=== PATIENT | female | born 1945 ===

== ENCOUNTER → 2018-06-15 17:48 | Outpatient (REF) | payer MEDICARE, OTHER, SELFPAY ==
[2018-06-15 18:35] LABS: Alanine Aminotransferase 36 IU/L (9-52); Albumin Globulin Ratio 1.6 (1.0-2.8); Alkaline Phosphatase 44 U/L (38-126); Aspartate Aminotransferase 27 IU/L (14-36); BUN Creatinine Ratio 16.3 (6-22); Bilirubin Total 0.4 mg/dL (0.2-1.3); Blood Urea Nitrogen 13 mg/dL (7-17); Calcium 9.3 mg/dL (8.4-10.2); Carbon Dioxide 27 mmol/L (22-32); Chloride 103 mmol/L (98-107); Cholesterol 201 mg/dL (140-199); Estimated Glomerular Filt Rate > 60.0 mL/min (>60); Globulin 2.5 g/dL (1.7-4.1); Glucose 92 mg/dL (80-110); HDL Cholesterol 80 mg/dL (40-60); HEMOLYSIS < 15 (0-50); LDL Cholesterol Calculated 103 mg/dL (<100); Potassium 4.3 mmol/L (3.4-5.1); Sodium 138 mmol/L (137-145); Total Protein 6.5 g/dL (6.3-8.2); Triglycerides 91 mg/dL (35-150)
== END ==
LOC: LAB 17:48
PROVIDERS: Family Provider Family Medicine Geriatric Medicine; PCP Family Medicine Geriatric Medicine; Visit Provider Family Medicine Geriatric Medicine
DX: Z79.899 Other long term (current) drug therapy (principal); E78.5 Hyperlipidemia, unspecified
CPT/HCPCS: 36415; 80053; 80061

== ENCOUNTER → 2022-11-30 15:44 | Outpatient (CLI) | payer MEDICARE, OTHER, SELFPAY ==
--- NOTE | 2022-11-30 | DI.MRI.S_ITS ---
PROCEDURE: MR ORBITS FACE NECK WO/W CON INDICATIONS: 77-year-old female with globus sensation, and history of nasopharyngeal carcinoma status post XRT TECHNIQUE: Sagittal/axial/coronal T1 spin echo and STIR. After the administration of contrast, axial/coronal/sagittal T1 fast spin echo with fat saturation through the neck. COMPARISON: None. FINDINGS: Image quality: Excellent. Lymph nodes: No enlarged nodes are seen throughout the neck. Vessels: Visualized vasculature appears normal, with normal flow voids and enhancement. Neck spaces: The oropharynx, nasopharynx and pharynx are unremarkable, without mucosal lesions seen. Vocal cords, false vocal cords, pyriform sinuses, epiglottis, vallecula, and tongue base all appear normal. Extramucosal spaces of the neck also appear unremarkable. Glands: The parotid and submandibular glands appear normal. Thyroid gland unremarkable. Miscellaneous: Visualized brain and orbits appear normal. Lung apices appear clear. Superficial soft tissues appear normal. Visualized sinuses and mastoids appear clear. Bones: Marrow has normal overall signal. Mild degenerative endplate changes noted in the mid cervical spine IMPRESSION: Unremarkable MRI of neck. No evidence of mass lesion Approved by: Roberto Ribera M.D. on 12/01/2022 at 18:20
== END ==
PROVIDERS: Family Provider Family Medicine Geriatric Medicine; PCP Family Medicine Geriatric Medicine; Referring Provider Nurse Practitioner Family; Visit Provider Nurse Practitioner Family
DX: R22.1 Localized swelling, mass and lump, neck (principal); Z85.89 Personal history of malignant neoplasm of other organs and systems
CPT/HCPCS: 70543; A9579

== ENCOUNTER 2023-04-19 12:47 | Emergency (ER) | payer MEDICARE, OTHER, SELFPAY ==
[2023-04-19] VITALS (10 sets, daily range): BP systolic 162–203; BP diastolic 70–82; PULSE 55–62; RESP 16–24; TEMP 37.4; O2SAT 98–100; BMI 25.1
--- NOTE | 2023-04-19 13:22 | ED.GENADULT ---
HPI - General Adult General Chief complaint: Hypertension Stated complaint: sent from [facility] to re-evaluate Time Seen by Provider: 04/19/23 14:56 Source: patient and family Mode of arrival: Wheelchair History of Present Illness HPI narrative: Patient is a 78-year-old female history of hypothyroid, remote nasopharyngeal cancer presents today from the [facility] needing an MRI. She reports that she is had some ringing in her ears elevated blood pressure blurry vision difficulty ambulating. She was seen evaluated at Monday a couple of days ago she had a CT angio blood work was discharged home on Catapr. She reports that she still is having some trouble walking. She says the blurry vision has gotten better. No numbness tingling weakness. No chest pain palpitations. No fever any other symptoms. It sounds like she was sent over outpatient MRI which has yet to be scheduled. Not sure symptoms are significantly worse today. Actually spoke with the ED physician Dr. Ambrocio over at Monday she reviewed the record she actually saw the patient. She said that she has had some ongoing issues for months but a little bit worse. She was able to review the CT angio because we were not able to get records there is less pain 50% stenosis and no acute finding. Related Data Home Medications Medication Instructions Recorded Confirmed LEVOTHYROXINE SODIUM (SYNTHROID) ##0 11/16/10 conjugated estrogens 0.3 mg tablet 0.3 mg PO QDAY ##0 11/16/10 (Premarin) fluoxetine 40 mg capsule (Prozac) 10 mg PO QDAY ##0 11/16/10 simvastatin 40 mg tablet (Zocor) 40 mg PO QDAY ##0 11/16/10 Previous Rx's Medication Instructions Recorded meclizine 25 mg tablet 25 mg PO TID PRN dizziness #10 tabs 04/19/23 Allergies Allergy/AdvReac Type Severity Reaction Status Date / Time Penicillins Allergy Unknown Verified 04/19/23 15:24 Patient History Social History Smoking Status: Never smoker Smoking Status: Never smoker alcohol intake frequency: holidays/special occasions only Substance Use Type: does not use Exam Initial Vital Signs Initial Vital Signs: Vital Signs Temperature 99.4 F 04/19/23 12:50 Pulse Rate 62 04/19/23 12:50 Respiratory Rate 18 04/19/23 12:50 Blood Pressure 203/82 H 04/19/23 12:50 Pulse Oximetry 100 04/19/23 12:50 Oxygen Delivery Method Room Air 04/19/23 12:50 GENERAL: Alert well-appearing 78-year-old female and in no acute distress. HEENT: Head atraumatic,EOMI, no nystagmus pupils reactive, face symmetric, moist mucous membranes CARDIOVASCULAR: Regular rate and rhythm without murmurs, rubs or gallops. RESPIRATORY: Breath sounds equal bilaterally, no wheezes rales or rhonchi. ABDOMEN: Soft, nontender. Normoactive bowel sounds all 4 quadrants. No guarding or rebound. EXTREMITIES: Normal range of motion, no clubbing or edema. Neurovascularly intact NEUROLOGICAL: Alert and oriented x4.Normal gait and speech. Cranial nerves II through XII grossly intact. Good okjoef-gj-dwar, good equa-zp-aycs, strength equal bilaterally, no dysarthria or aphasia, sensation in tact to soft touch bilaterally, no visual changes, no facial droop SKIN: Warm, dry, no laceration, no petechiae, no rashes or lesions. Scores NIH Stroke Scale Level of Conciousness: Alert, keenly responsive Ask month/age: Answers both questions correctly. Open/close eyes, close hand: Performs both tasks correctly Best gaze horizontal: Normal Visual vázquez: No visual loss Facial palsy: Normal symetrical movement Left arm drift: No drift for full 10 sec Right arm drift: No drift for full 10 sec Left leg drift: No drift for full 5 sec Right leg drift: No drift for full 5 sec Limb ataxia: Absent Sensory on face/arms/legs: Normal, no sensory loss Best language: No aphasia, normal Dysarthria: Normal Extinction or inattention: No abnormality Total NIH Stroke scale score: 0 Course Orders Ordered: ED Orders 04/19/23 13:20 Complete Blood Count AUTO DIFF Stat Comprehensive Metabolic Panel Stat Lipase Stat Troponin & CK Cardiac Panel Stat 04/19/23 15:07 MR stroke Stat 04/19/23 15:08 EKG-12 Lead Stat Discontinued Medications Lorazepam (Lorazepam 2 Mg/Ml Inj) 0.5 mg IV NOW ONE Stop: 04/19/23 15:23 Last Admin: 04/19/23 15:30 Dose: 0.5 mg Documented By: AMV Vital Signs Vital signs: Vital Signs - 8 hr 04/19/23 12:50 04/19/23 13:21 12/27/23 13:21 Temperature 99.4 F Pulse Rate 62 56 L Respiratory Rate 18 16 Blood Pressure 203/82 H 169/72 H Pulse Oximetry 100 100 Oxygen Delivery Method Room Air 04/19/23 13:30 04/19/23 13:30 04/19/23 14:00 Temperature Pulse Rate 57 L 57 L Respiratory Rate 20 18 Blood Pressure 166/70 H Pulse Oximetry 100 99 Oxygen Delivery Method 04/19/23 14:00 04/19/23 14:30 04/19/23 14:31 Temperature Pulse Rate 56 L Respiratory Rate 22 Blood Pressure 188/75 H 162/72 H Pulse Oximetry 100 Oxygen Delivery Method 04/19/23 14:31 04/19/23 15:00 04/19/23 16:56 Temperature Pulse Rate 56 L 57 L 59 L Respiratory Rate 16 24 19 Blood Pressure Pulse Oximetry 99 98 99 Oxygen Delivery Method 04/19/23 16:57 04/19/23 16:57 04/19/23 17:00 Temperature Pulse Rate 57 L Respiratory Rate 22 Blood Pressure 187/79 H 171/72 H Pulse Oximetry 99 Oxygen Delivery Method 04/19/23 17:00 Temperature Pulse Rate 55 L Respiratory Rate 22 Blood Pressure Pulse Oximetry 100 Oxygen Delivery Method Medical Decision Making Lab Data 04/19/23 13:20 04/19/23 13:20 Labs: Lab Results 04/19/23 Range/Units 13:20 WBC 8.0 (4.5-11.0) X10^3/uL RBC 4.44 (4.0-5.2) X10^6/uL Hgb 13.4 (12.0-16.0) g/dL Hct 39.6 (36-46) % MCV 89.1 (80-100) fL MCH 30.1 (26-34) PG MCHC 33.8 (30-36) % RDW 13.5 (11.6-14.8) % Plt Count 380 (150-400) X10^3/uL Neut % (Auto) 72.1 (50-75) % Lymph % (Auto) 19.3 L (25-40) % Trinity % (Auto) 5.7 (3-14) % Eos % (Auto) 2.1 (2-4) % Baso % (Auto) 0.8 (0-2) % Neut # (Auto) 5800 (2804-5182) /uL Lymph # (Auto) 1500 (8795-7479) /uL Trinity # (Auto) 500 (0-900) /uL Eos # (Auto) 200 (0-450) /uL Baso # (Auto) 100 (0-100) /uL Sodium 131 L (137-145) mmol/L Potassium 3.7 (3.4-5.1) mmol/L Chloride 98 (98-107) mmol/L Carbon Dioxide 25 (22-32) mmol/L BUN 15 (7-17) mg/dL Creatinine 0.84 (0.52-1.04) mg/dL Estimated GFR > 60 (>60) mL/min BUN/Creatinine Ratio 17.9 (6-22) Glucose 116 H (80-110) mg/dL Calcium 9.1 (8.4-10.2) mg/dL Total Bilirubin 0.6 (0.2-1.3) mg/dL AST 36 (14-36) IU/L ALT 25 (<35) IU/L Alkaline Phosphatase 49 (38-126) U/L Total Creatine Kinase 47 (30-135) U/L Troponin I < 0.012 (0.01-0.034) ng/mL Total Protein 7.0 (6.3-8.2) g/dL Albumin 3.9 (3.5-5.0) g/dL Globulin 3.1 (1.7-4.1) g/dL Albumin/Globulin Ratio 1.3 (1.0-2.8) Lipase 106 (23-300) U/L Imaging Data MR : Radiologist's Impression: PROCEDURE: MR STROKE Pre- and post-contrast brain MRI, non-contrast brain MR angiogram, pre- and postcontrast neck MR angiogram INDICATIONS: dizzy, unable to ambulate for days, had CT on monday TECHNIQUE: Brain: Noncontrast axial T1 spin echo, axial T2 fast spin echo, sagittal and axial FLAIR, coronal T2 fast spin echo, axial gradient echo, axial diffusion and ADC through the brain. After the administration of contrast, axial 3D VIBE of the cranial vasculature and brain. Brain MRA: Non-contrast 3-D time of flight MR angiogram, with multiple gjmkkgf-vllumqqgq-xwfakaeplo (MIP) reformats performed. Neck MRA: Axial and sagittal TruFISP through the neck. Coronal dynamic MR angiogram during administration of contrast in the arterial and venous phases, with 3-dimenstional hakfoah-wuymcrzco-grixyrhuut (MIP) reformats constructed from subtraction images. COMPARISON: [facility], , STROKE PROTOCOL, 11/17/2010, 11:28. FINDINGS: Image quality: Excellent. BRAIN: CSF spaces: Ventricles are normal in size and shape. Basal cisterns are patent. No extra-axial fluid collections. Brain: No intracranial bleeds or mass effects. Ware-white matter interface is normal. Diffusion weighted images show no acute infarct. Brainstem appears normal. Normal intravascular flow voids are present. No abnormal intracranial enhancement. Skull and face: Calvarial marrow signal is normal. Orbits appear normal. Sinuses: Mild left maxillary mucosal thickening. BRAIN MR ANGIOGRAM: Anterior circulation: Intracranial internal carotid arteries are normal in size and enhancement. The flow within the paired anterior cerebral arteries is normal and symmetric. The flow within the middle cerebral arteries is normal and symmetric. The anterior communicating artery is seen. No stenoses, occlusions, or aneurysms. Posterior circulation: The visualized portions of the vertebral arteries demonstrate normal caliber, and join to form a normal appearing basilar artery. The flow within the posterior cerebral arteries is normal and symmetric. No stenoses, occlusions, or aneurysms. NECK MR ANGIOGRAM: Carotids: Great vessels demonstrate a conventional anatomy as they arise from the aortic arch. The origins of the common carotid arteries appear patent. The calibers and courses of both common carotid arteries are normal. The bifurcation region on the right demonstrates a less than 20% stenosis with a subsequent 50% stenosis in the proximal ICA. The bifurcation region on the left demonstrates no significant stenosis. The internal carotid arteries demonstrate normal course and caliber. Posterior circulation: The origins of the vertebral arteries appear patent. More superior portions of both vertebral arteries demonstrate normal course and caliber, and join to form a normal appearing basilar artery. Miscellaneous: Subclavian arteries appear patent. Pre-contrast images through the neck show no soft tissue abnormalities. C6-7 demonstrates a diffuse disc bulge and ligamentum flavum hypertrophy resulting in moderate to severe central canal stenosis. C5-6 has mild central canal stenosis. IMPRESSION: BRAIN MRI: 1. No acute intracranial abnormality. 2. Cerebral volume loss and small vessel ischemic changes. BRAIN MR ANGIOGRAM: Normal. No large vessel occlusion. NECK MR ANGIOGRAM: 50% stenosis in the right proximal ICA. CERVICAL SPINE: Moderate to severe central canal stenosis at C6-7. Dictated by: Federico Kirk M.D. on 04/19/2023 at 16:49 ECG Data Interpretation: Normal sinus rhythm rate 56 WA interval 148 QRS 82 QTC 468 which is improved from previous QTC which was 540 MDM Narrative Medical decision making narrative: Patient is a 78-year-old female who presents with some dizziness and balance issues. It has been ongoing for a couple of days. She initially presented to an outside facility where she had a CT angio which did not show any occlusion. She spoke with her PCP recommended she come for an MRI. She does actually have difficulty ambulating in the ED needing to hold onto the vanegas in her . Says this is very abnormal for her. She also has significant ringing in her ear which is new. No nausea or vomiting. She does not really seem to be dizzy. Possible vertigo versus posterior stroke versus tinnitus versus labyrinthitis Blood work is overall reassuring. MRI does show small vessel ischemic changes. At this time need for outpatient follow-up. She is ambulatory to the restroom a couple of times but does need obvious assistance. Discharge Plan Departure Patient Disposition: Home Clinical Impression: Vertigo Instructions: DI for Vertigo Activity Restrictions/Additional Instructions: *You have been diagnosed with vertigo *What to do: At this time your MRI does not show any acute stroke you do have some chronic disease but no prior stroke Help this gets better for you Please continue to check her blood pressure 1 to 2 times daily and record it, will likely need other blood pressure medications *Continue to take medications as directed Meclizine 25-50 mg 3 times a day if needed *Follow up with your primary care provider in 2-3 days or call [phone] *Return to ER if you should have worsening dizziness weakness or any new, worsening or concerning symptoms Prescriptions: New meclizine 25 mg tablet 25 mg PO TID PRN (Reason: dizziness) Qty: 10 0RF No Action fluoxetine [Prozac] 40 MG capsule 10 mg PO QDAY Qty: 0 simvastatin [Zocor] 40 MG tablet 40 mg PO QDAY Qty: 0 conjugated estrogens [Premarin] 0.3 MG tablet 0.3 mg PO QDAY Qty: 0 LEVOTHYROXINE SODIUM (SYNTHROID) Qty: 0 Referrals: Suzanne Camarillo MD [Primary Care Provider] - Stand Alone Forms: Patient Portal/API
--- NOTE | 2023-04-19 15:07 | DI.MRI.S_ITS ---
PROCEDURE: MR STROKE Pre- and post-contrast brain MRI, non-contrast brain MR angiogram, pre- and postcontrast neck MR angiogram INDICATIONS: dizzy, unable to ambulate for days, had CT on monday [place] TECHNIQUE: Brain: Noncontrast axial T1 spin echo, axial T2 fast spin echo, sagittal and axial FLAIR, coronal T2 fast spin echo, axial gradient echo, axial diffusion and ADC through the brain. After the administration of contrast, axial 3D VIBE of the cranial vasculature and brain. Brain MRA: Non-contrast 3-D time of flight MR angiogram, with multiple zldpuoo-nozbpfhyb-cdkdihbvar (MIP) reformats performed. Neck MRA: Axial and sagittal TruFISP through the neck. Coronal dynamic MR angiogram during administration of contrast in the arterial and venous phases, with 3-dimenstional stgcyts-ntpqafulc-mqujqivvqz (MIP) reformats constructed from subtraction images. COMPARISON: [facility], MR, STROKE PROTOCOL, 11/17/2010, 11:28. FINDINGS: Image quality: Excellent. BRAIN: CSF spaces: Ventricles are normal in size and shape. Basal cisterns are patent. No extra-axial fluid collections. Brain: No intracranial bleeds or mass effects. Ware-white matter interface is normal. Diffusion weighted images show no acute infarct. Brainstem appears normal. Normal intravascular flow voids are present. No abnormal intracranial enhancement. Skull and face: Calvarial marrow signal is normal. Orbits appear normal. Sinuses: Mild left maxillary mucosal thickening. BRAIN MR ANGIOGRAM: Anterior circulation: Intracranial internal carotid arteries are normal in size and enhancement. The flow within the paired anterior cerebral arteries is normal and symmetric. The flow within the middle cerebral arteries is normal and symmetric. The anterior communicating artery is seen. No stenoses, occlusions, or aneurysms. Posterior circulation: The visualized portions of the vertebral arteries demonstrate normal caliber, and join to form a normal appearing basilar artery. The flow within the posterior cerebral arteries is normal and symmetric. No stenoses, occlusions, or aneurysms. NECK MR ANGIOGRAM: Carotids: Great vessels demonstrate a conventional anatomy as they arise from the aortic arch. The origins of the common carotid arteries appear patent. The calibers and courses of both common carotid arteries are normal. The bifurcation region on the right demonstrates a less than 20% stenosis with a subsequent 50% stenosis in the proximal ICA. The bifurcation region on the left demonstrates no significant stenosis. The internal carotid arteries demonstrate normal course and caliber. Posterior circulation: The origins of the vertebral arteries appear patent. More superior portions of both vertebral arteries demonstrate normal course and caliber, and join to form a normal appearing basilar artery. Miscellaneous: Subclavian arteries appear patent. Pre-contrast images through the neck show no soft tissue abnormalities. C6-7 demonstrates a diffuse disc bulge and ligamentum flavum hypertrophy resulting in moderate to severe central canal stenosis. C5-6 has mild central canal stenosis. IMPRESSION: BRAIN MRI: 1. No acute intracranial abnormality. 2. Cerebral volume loss and small vessel ischemic changes. BRAIN MR ANGIOGRAM: Normal. No large vessel occlusion. NECK MR ANGIOGRAM: 50% stenosis in the right proximal ICA. CERVICAL SPINE: Moderate to severe central canal stenosis at C6-7. Dictated by: Federico Kirk M.D. on 04/19/2023 at 16:49 Approved by: Federico Kirk M.D. on 04/19/2023 at 17:01
[2023-04-19 15:12] LABS: Add Manual Diff / Slide Review NO; Basophils Absolute Auto 100 /uL (0-100); Basophils Percent Auto 0.8 % (0-2); Eosinophils Absolute Auto 200 /uL (0-450); Eosinophils Percent Auto 2.1 % (2-4); Hematocrit 39.6 % (36-46); Hemoglobin 13.4 g/dL (12.0-16.0); Lymphocytes Absolute Auto 1500 /uL (1100-4500); Lymphocytes Percent Auto 19.3 % (25-40); Mean Corpuscular HGB Conc 33.8 % (30-36); Mean Corpuscular Hemoglobin 30.1 PG (26-34); Mean Corpuscular Volume 89.1 fL (80-100); Monocytes Absolute Auto 500 /uL (0-900); Monocytes Percent Auto 5.7 % (3-14); Neutrophils Absolute Auto 5800 /uL (1500-7000); Neutrophils Percent Auto 72.1 % (50-75); Platelet Count 380 X10^3/uL (150-400); Red Blood Cell Count 4.44 X10^6/uL (4.0-5.2); Red Cell Distribution Width 13.5 % (11.6-14.8)
[2023-04-19 15:22] LABS: Alanine Aminotransferase 25 IU/L (<35); Albumin 3.9 g/dL (3.5-5.0); Albumin Globulin Ratio 1.3 (1.0-2.8); Alkaline Phosphatase 49 U/L (38-126); Aspartate Aminotransferase 36 IU/L (14-36); BUN Creatinine Ratio 17.9 (6-22); Bilirubin Total 0.6 mg/dL (0.2-1.3); Blood Urea Nitrogen 15 mg/dL (7-17); Calcium 9.1 mg/dL (8.4-10.2); Carbon Dioxide 25 mmol/L (22-32); Chloride 98 mmol/L (98-107); Creatine Kinase 47 U/L (30-135); Estimated Glomerular Filt Rate > 60 mL/min (>60); Globulin 3.1 g/dL (1.7-4.1); Glucose 116 mg/dL (80-110); HEMOLYSIS < 15 (0-50); Lipase 106 U/L (23-300); Potassium 3.7 mmol/L (3.4-5.1); Sodium 131 mmol/L (137-145)
[2023-04-19] MEDS: LORazepam 2 MG/ML INJ 0.5 MG IV (15:30)
[2023-04-19 15:33] LABS: Troponin I < 0.012 ng/mL (0.01-0.034)
--- NOTE | 2023-04-19 16:53 | PC.NURSE ---
Pt tolerated MRI well with medication.
== END 2023-04-19 17:28 | disposition home or self-care (01) ==
PROVIDERS: Emergency Provider Emergency Medicine; Family Provider Family Medicine Geriatric Medicine; PCP Family Medicine Geriatric Medicine
DX: R42 Dizziness and giddiness (principal); R29.700 NIHSS score 0; H53.8 Other visual disturbances
CPT/HCPCS: 36415; 70548; 70553; 80053; 82550; 83690; 84484; 85025; 93005; 96374; 99284; 99285; J2060